=== PATIENT | female | born 1960 | race Caucasian/White ===

== ENCOUNTER 2016-12-30 23:26 | Emergency (ER) | payer SELFPAY ==
[~2016-12-30] VITALS: Ht 172.7 cm; Wt 54.9 kg
[2016-12-30] MEDS ORDERED: TRAMADOL HCL100 MG PO (23:49)
[2016-12-30] MEDS ORDERED: CARBATROL-ER200 MG PO (23:50)
[2016-12-30] MEDS ORDERED: LYRICA75 MG PO (23:50)
[2016-12-30] MEDS ORDERED: BACLOFEN10 MG PO (23:51)
[2016-12-31 00:35] LABS: HEMATOCRIT 47.1 % (36.0-46.0); MCH 32.3 PG (29.0-34.0); MCHC 34.4 G/DL (30.0-36.0); MEAN PLAT.VOLUME 8.9 uM^3 (9.5-12.4); PLATELET COUNT 309 K/uL (156-360); RBC DIS.WIDTH-CV 12.8 % (11.8-14.6); RBC DIS.WIDTH-SD 44.2 % (39-53); RED BLOOD COUNT 5.01 M/uL (3.80-5.20); WHITE BLOOD COUNT 6.4 K/uL (4.1-10.2)
[2016-12-31 00:50] LABS: CHLORIDE 104 mEq/L (99-109); POTASSIUM 3.9 mEq/L (3.7-5.4); SODIUM 141 mEq/L (136-147)
[2016-12-31 00:52] LABS: GLUCOSE 105 mg/dL (70-99)
[2016-12-31 00:54] LABS: ANION GAP 14 MEQ/L (2-14)
[2016-12-31 00:56] LABS: GFR ESTIMATE (CALCULATED) > 59 mL/min/
[2016-12-31 00:57] LABS: UREA NITROGEN (BUN) 15 mg/dL (9-23)
[2016-12-31] MEDS ORDERED: LIDODERM 5% P1 PATCH TD (01:51)
[2016-12-31 02:21] VITALS: BP 154/80
== END 2016-12-31 02:21 | disposition home or self-care (01) ==
LOC: EME → EDBD 23:26 → EME 23:26
PROVIDERS: Emergency Medicine
DX: M54.31 Sciatica, right side (principal); E86.0 Dehydration; G89.29 Other chronic pain; G35 Multiple sclerosis; F17.200 Nicotine dependence, unspecified, uncomplicated
CPT/HCPCS: 80048; 81003; 85027; 99281; 99285; J1200; J1885; J2270; J2405; J7030

== ENCOUNTER 2017-08-16 05:56 | Observation (INO) | payer SELFPAY ==
[~2017-08-16] VITALS: Ht 172.7 cm; Wt 57.5 kg
[~2017-08-16 05:56] MED LIST: BACLOFEN10 MG PO; CARBATROL-ER200 MG PO; LIDODERM 5% P1 PATCH TD; LYRICA75 MG PO; TRAMADOL HCL100 MG PO
[2017-08-16 07:04] LABS: ADD MIUA? NO; BILIRUBIN NEGATIVE; BLOOD NEGATIVE; COLOR YELLOW ((YELLOW)); GLUCOSE (STRIP) 50; KETONES 20; LEUKOCYTES NEGATIVE; NITRITE NEGATIVE; PROTEIN (STRIP) NEGATIVE; SPECIFIC GRAVITY 1.018 (1.000-1.030); UCUL ADDED? NO; UROBILINOGEN 0.2 MG/DL (0.2-1.0)
[2017-08-16 07:35] LABS: EOSINOPHIL (%) 0.2 % (0-5); HEMATOCRIT 43.1 % (36.0-46.0); IMMATURE GRANULOCYTE (%) 0.5 % (0.0-0.7); INSTRUMENT ABS NEUTROPHIL CT 4.8 K/uL; LYMPHOCYTE COUNT 0.8 K/uL (1.0-2.8); MCH 32.1 PG (29.0-34.0); MCHC 35.5 G/DL (30.0-36.0); MCV 90.4 FL (83-99); MEAN PLAT.VOLUME 8.6 uM^3 (9.5-12.4); MONOCYTE (%) 4.5 % (3-12); MONOCYTE COUNT 0.3 K/uL (0-0.8); NEUTROPHIL (%) 80.7 % (45-76); NEUTROPHIL COUNT 4.8 K/uL (1.8-6.4); PLATELET COUNT 272 K/uL (156-360); RBC DIS.WIDTH-CV 12.9 % (11.8-14.6); RBC DIS.WIDTH-SD 43.1 % (39-53); RED BLOOD COUNT 4.77 M/uL (3.80-5.20)
[2017-08-16 07:40] LABS: INTER. NORMALIZED RATIO 1.1; PROTHROMBIN TIME 12.2 SEC (10.2-12.9)
[2017-08-16 08:10] LABS: ALKALINE PHOSPHATASE 83 IU/L (3-129); ANION GAP 7 MEQ/L (2-14); CHLORIDE 98 MEQ/L (99-109); GFR ESTIMATE (CALCULATED) > 59 mL/min/; GLUCOSE 166 mg/dL (70-99); LIPASE 7 U/L (1.0-51.0); POTASSIUM 3.6 MEQ/L (3.7-5.4); SAMPLE HEMOLYSIS CHECK 0; SAMPLE ICTERIC CHECK 0; SAMPLE LIPEMIA CHECK 0; SODIUM 131 MEQ/L (136-147); TOTAL BILIRUBIN 0.3 MG/DL (0.0-1.0); UREA NITROGEN (BUN) 17 mg/dL (9-23)
[2017-08-16] MEDS ORDERED: BACLOFEN10 MG PO (09:05)
[2017-08-16] MEDS ORDERED: NEURONTIN300 MG PO (09:06)
[2017-08-16] MEDS ORDERED: CARBAMAZEPINE200 M1 PO (09:07)
[2017-08-16] MEDS ORDERED: DIAZEPAM10 MG PO (09:09)
[2017-08-16] MEDS ORDERED: TRAMADOL HCL E100 M1 PO (09:10)
[2017-08-16] MEDS ORDERED: ERGOCALCIF50000 UNIT PO (09:11)
[2017-08-16 12:34] VITALS: BP 178/79
[2017-08-16 15:27] VITALS: BP 181/84
[2017-08-16 17:55] VITALS: BP 187/87
[2017-08-16 19:20] VITALS: BP 166/81
[2017-08-17 00:27] VITALS: BP 191/88
[2017-08-17 00:35] VITALS: BP 186/90
[2017-08-17 04:21] VITALS: BP 163/100
[2017-08-17 08:05] VITALS: BP 202/96
[2017-08-17 08:46] LABS: Estimated Average Glucose 111 mg/dL (70-123); HEMOGLOBIN A1c (GLYCOHEMOGLOB) 5.5 % HGB (Below 5.7)
[2017-08-17 09:45] VITALS: BP 157/77
[2017-08-17] MEDS ORDERED: AMLODIPINE BESY10 MG PO (10:52)
[2017-08-17] MEDS ORDERED: FOLIC ACID1 MG PO (10:53)
== END 2017-08-17 11:29 | disposition home or self-care (01) ==
LOC: EME → EDBD 05:56 → EDOF 10:33 → 5WEST 10:33 → CANRESERV 10:35 → ENRESERV 10:35 → EDOF 10:59 → ENRESERV 11:00 → 5WEST 12:09 → ENPENDDIS 08-17 → 5WEST 08-17 11:29
PROVIDERS: Emergency Medicine; Hospitalist
DX: R41.82 Altered mental status, unspecified (principal); T68.XXXA Hypothermia, initial encounter; E87.6 Hypokalemia; E87.1 Hypo-osmolality and hyponatremia; I10 Essential (primary) hypertension; G89.29 Other chronic pain; G35 Multiple sclerosis; Z79.899 Other long term (current) drug therapy; F17.200 Nicotine dependence, unspecified, uncomplicated
CPT/HCPCS: 70450; 71010; 80053; 80156; 81003; 82306; 82607; 82746; 83036; 83605; 83690; 84145 90; 84443; 85025; 85610; 86140; 87040; 93005; 99281; 99285; G0378; J0360; J1650; J2405; J7030; Q0169